=== PATIENT | female | born 1940 | race Caucasian/White ===

== ENCOUNTER 2016-11-30 11:12 | Emergency (ER) | payer MEDICARE ==
[2016-11-30 11:27] VITALS: BP 129/67
--- NOTE | 2016-11-30 12:43 | UC ---
wyatt Sol Timothy, scribed for Tracy Alcantara MD on 11/30/16 at 1229 . Skin Complaint HPI - HPI Summary HPI Summary: Tracy Gutierrez is a 76 yo female presenting to [facility] with a possible right sided superior thigh wound noted this morning causing 3/10 pain. Area is red with purulent, bloody drainage when attempted to express. No fevers, chills. + TTP. No cp, sob, abd pain. No n/v/d. not immunocompromised. Her MHx includes HLD, migraine, landa's palsy, breast CA, chemotherapy. Pt medication list reviewed this visit. - History of Current Complaint Chief Complaint: UCSkin Time Seen by Provider: 11/30/16 12:37 Stated Complaint: SKIN ISSUE Hx Obtained From: Patient Hx Last Menstrual Period: post Onset/Duration: Sudden Onset, Lasting Hours, Still Present Skin Exposure Onset/Duration: Hours Ago Timing: Constant Onset Severity: Moderate Current Severity: Moderate Pain Intensity: 3 Pain Scale Used: 0-10 Numeric Location: Other - right buttock and superior right thigh Character: Pain, Redness Aggravating: Nothing Alleviating: Nothing Associated Signs & Symptoms: Positive: Negative - Allergy/Home Medications Allergies/Adverse Reactions: Allergies Allergy/AdvReac Type Severity Reaction Status Date / Time Ampicillin Allergy body hives Verified 11/30/16 11:27 Review of Systems Constitutional: Negative Skin: Other - possible superior thigh abscess w/ purulent drainage Eyes: Negative ENT: Negative Respiratory: Negative Cardiovascular: Negative Gastrointestinal: Negative Genitourinary: Negative Motor: Negative Neurovascular: Negative Musculoskeletal: Negative Neurological: Negative Psychological: Negative All Other Systems Reviewed And Are Negative: Yes PMH/Surg Hx/FS Hx/Imm Hx Previously Healthy: Yes Neurological History: Migraine, Other Other Neurological History: landa's palsy Cancer History: Breast Cancer - Surgical History Surgical History: Yes Surgery Procedure, Year, and Place: right mastectomy/reconstruction, joint removed (toe) , - Family History Known Family History: Positive: Cardiac Disease, Other - breast CA Negative: Hypertension, Diabetes - Social History Occupation: Employed Full-time - personal insurance advisor Alcohol Use: Occasionally Substance Use Type: None Smoking Status (MU): Former Smoker - Immunization History Most Recent Influenza Vaccination: never Most Recent Tetanus Shot: never Most Recent Pneumonia Vaccination: never Physical Exam Triage Information Reviewed: Yes Appearance: Well-Appearing, No Pain Distress, Well-Nourished Vital Signs: Initial Vital Signs Temp 98.3 F 11/30/16 11:22 Pulse 63 11/30/16 11:22 Resp 15 11/30/16 11:22 BP 129/67 11/30/16 11:22 Pulse Ox 100 11/30/16 11:22 Vital Signs Reviewed: Yes Neck: Positive: Supple, Nontender, No Lymphadenopathy Respiratory Exam: Normal Respiratory: Positive: Chest non-tender, Lungs clear, Normal breath sounds, No respiratory distress Cardiovascular Exam: Normal Cardiovascular: Positive: RRR, No Murmur Abdominal Exam: Normal Abdomen Description: Positive: Nontender, No Organomegaly, Soft Musculoskeletal Exam: Normal Neurological Exam: Normal Psychological Exam: Normal Skin: Positive: Other - right inguinal area - pt with kaitlin sized wound with mild erythema, raised. no induration, no discharge, no odor mild TTP wound irritation by underwear Course/Dx - Course Course Of Treatment: Tracy Gutierrez is a 76 yo female presenting to [facility] with possible abscess causing 3/10 pain with purulent, bloody discharge Pt with erythema and small raised wound. given location, recommend short course abx. warm soaks, bandage. Return precautions discussed. Medication list reviewed this visit. - Differential Diagnoses - Skin Complaint Differential Diagnoses: Abscess, Cellulitis, Other - folliculitis - Diagnoses Provider Diagnoses: follicultiis, early cellulitis Discharge - Discharge Plan Condition: Stable Disposition: HOME Prescriptions: DOXYcycline CAP(*) [DOXYcycline 100MG CAP(*)] 100 mg PO BID #14 cap Patient Education Materials: Folliculitis (ED), Warm Compress or Soak (ED) Referrals: Mary Carmen Diaz MD [Primary Care Provider] - 2 Days Additional Instructions: -The doctor that examined you today does not think your wound is infected or related to a tick bite but an inflammed hair follicle with an early infection - It is recommended that you apply warm, wet wash cloth to your wound 2-3 times a day - Cover the wound with antibiotic ointment and then place a band aide or wear different underwear to prevent rubbing of the wound - take antibiotics as prescribed until gone - Contact your doctor to schedule a follow-up appointment. Contact your doctor or return with questions or concerns - increased pain, reddness, fever, chills, drainage or other concerns The documentation as recorded by the wyatt nance Timothy accurately reflects the service I personally performed and the decisions made by me, Tracy Alcantara MD.
== END 2016-11-30 12:57 | disposition home or self-care (01) ==
LOC: UCEAST 11:12
DX: L73.9 Follicular disorder, unspecified (principal); L03.115 Cellulitis of right lower limb; G43.909 Migraine, unspecified, not intractable, without status migrainosus; Z85.3 Personal history of malignant neoplasm of breast; Z90.11 Acquired absence of right breast and nipple; Z88.1 Allergy status to other antibiotic agents; Z87.891 Personal history of nicotine dependence
CPT/HCPCS: 99211; G0463